=== PATIENT | female | born 1995 | race Caucasian/White ===

== ENCOUNTER 2018-08-05 06:48 | Day surgery (SDC) | payer OTHER ==
[~2018-08-05] VITALS: Ht 157.5 cm; Wt 49.4 kg
[2018-08-05] MEDS ORDERED: CEFAZOLIN SODIUM 1 GM/D5W PM 50 ML IV SCH (07:35)
[2018-08-05] MEDS ORDERED: BUPIVACAINE-MPF 0.25% 30 ML VIAL INJ ONE (08:30)
[2018-08-05] MEDS ORDERED: PROPOFOL 200 MG/20 ML VIAL IV ONE (08:31)
[2018-08-05] MEDS ORDERED: KETOROLAC 30 MG/ML VIAL ONE (08:31)
[2018-08-05] MEDS ORDERED: ONDANSETRON 4 MG/2 ML VIAL ONE (08:31)
[2018-08-05] MEDS ORDERED: SEVOFLURANE 250 ML BTL INH ONE (08:31)
[2018-08-05] MEDS ORDERED: DEXAMETHASONE 4 MG/ML VIAL ONE (08:31)
[2018-08-05] MEDS ORDERED: fentaNYL 0.05 MG/ML VIAL ONE (08:44)
== END 2018-08-05 10:50 | disposition home or self-care (01) ==
LOC: MDS 06:48 → MMU 06:49 → MDS 10:50
PROVIDERS: ATTEND Surgery
DX: D24.1 Benign neoplasm of right breast (principal); Z80.3 Family history of malignant neoplasm of breast; Z79.899 Other long term (current) drug therapy
CPT/HCPCS: 19120; 71045; 88305; J0690; J1100; J1885; J2405; J2704; J3010; J3490; J7120; Q0092